=== PATIENT | male | born 1945 | race Caucasian/White ===

== ENCOUNTER → 2018-01-05 11:16 | Outpatient (CLI) | payer MEDICARE, SELFPAY ==
[2018-01-05 14:12] LABS: Blood Urea Nitrogen 28 mg/dL (9-20); Calcium 9.6 mg/dL (8.4-10.2); Carbon Dioxide 27 mmol/L (22-32); Chloride 103 mmol/L (98-107); Estimated Glomerular Filt Rate > 60.0 mL/min (>60); Glucose 95 mg/dL (80-110); HEMOLYSIS 16 (0-50); Potassium 3.8 mmol/L (3.4-5.1); Sodium 143 mmol/L (137-145)
[2018-01-07 14:24] LABS: PSA Free % 24 % (calc) (> 25); PSA, Total 4.5 ng/mL (< 4.1)
== END ==
PROVIDERS: Visit Provider Internal Medicine
DX: D35.2 Benign neoplasm of pituitary gland (principal); R97.20 Elevated prostate specific antigen [PSA]; I10 Essential (primary) hypertension
CPT/HCPCS: 36415; 80048; 84146; 84153; 84154

== ENCOUNTER 2018-01-23 13:44 | Emergency (ER) | payer MEDICARE, SELFPAY ==
[2018-01-23 13:51] VITALS: BP 176/87; PULSE 61; RESP 14; TEMP 36.2; O2SAT 96
--- NOTE | 2018-01-23 13:59 | DI.RAD.S_ITS ---
PROCEDURE: XR CHEST 2V INDICATIONS: chest pain TECHNIQUE: 2 views of the chest were acquired. COMPARISON: [facility], CHEST 2 VIEW, 09/25/2010, 12:31. [facility], CHEST 1 VIEW, 06/12/2016, 16:37. FINDINGS: Surgical changes and devices: None. Lungs and pleura: No pleural effusions or pneumothorax. Lungs are clear. Mediastinum: Mediastinal contours are normal. Heart size is normal. Bones and chest wall: No suspicious bony abnormalities. Soft tissues appear unremarkable. IMPRESSION: No acute cardiopulmonary disease. Dictated by: Steven Alfredo M.D. on 01/23/2018 at 14:26 Approved by: Steven Alfredo M.D. on 01/23/2018 at 14:27
[2018-01-23 14:20] LABS: Add Manual Diff / Slide Review NO; Basophils Percent Auto 0.6 % (0-2); Eosinophils Percent Auto 0.6 % (2-4); Hemoglobin 14.1 g/dL (13.5-17.5); Lymphocytes Percent Auto 16.6 % (25-40); Mean Corpuscular HGB Conc 34.5 % (30-36); Mean Corpuscular Hemoglobin 30.2 PG (26-34); Mean Corpuscular Volume 87.4 fL (80-100); Monocytes Percent Auto 9.6 % (3-14); Neutrophils Absolute Auto 8900 /uL (3000-5900); Neutrophils Percent Auto 72.6 % (50-75); Platelet Count 198 X10^3/uL (150-400); Red Blood Cell Count 4.69 X10^6/uL (4.5-5.9); Red Cell Distribution Width 12.9 % (11.6-14.8); White Blood Cell Count 12.2 X10^3/uL (4.5-11.0)
[2018-01-23 14:21] VITALS: BP 176/87; PULSE 61; RESP 14; TEMP 36.2; O2SAT 96; BMI 33.4
[2018-01-23 14:27] LABS: INR 1.1 (0.9-1.3); Prothrombin Time 11.7 SECONDS (10.1-12.7)
[2018-01-23 14:29] LABS: PTT Partial Thromboplastin Tim 29 SECONDS (26.4-36.2)
[2018-01-23 14:33] LABS: Alanine Aminotransferase 24 IU/L (21-72); Albumin 4.4 g/dL (3.5-5.0); Albumin Globulin Ratio 1.5 (1.0-2.8); Alkaline Phosphatase 90 U/L (38-126); Aspartate Aminotransferase 19 IU/L (17-59); Bilirubin Total 1.1 mg/dL (0.2-1.3); Blood Urea Nitrogen 25 mg/dL (9-20); Calcium 9.8 mg/dL (8.4-10.2); Carbon Dioxide 28 mmol/L (22-32); Chloride 102 mmol/L (98-107); Creatine Kinase 43 U/L (55-170); Estimated Glomerular Filt Rate > 60.0 mL/min (>60); Globulin 2.9 g/dL (1.7-4.1); Glucose 103 mg/dL (80-110); HEMOLYSIS < 15 (0-50); Lipase 35 U/L (23-300); Potassium 4.1 mmol/L (3.4-5.1); Sodium 141 mmol/L (137-145); Total Protein 7.3 g/dL (6.3-8.2)
[2018-01-23 14:41] LABS: D Dimer 431 ng/mL (<230)
[2018-01-23 14:43] LABS: B Type Natriuretic Peptide 36.4 (<100)
[2018-01-23 14:45] LABS: Troponin I < 0.012 ng/mL (0.01-0.034)
--- NOTE | 2018-01-23 15:27 | DI.CT.S_ITS ---
PROCEDURE: CT ANGIO CHEST PE PROTOCOL INDICATIONS: chest pain w/ elevated d-dimer TECHNIQUE: After the administration of intravenous contrast, 2 mm thick sections acquired from the pulmonary apices to the posterior costophrenic angles. 3-dimensional maximum intensity projection (MIP) coronal and sagittal reformats were then acquired through the thorax. For radiation dose reduction, the following was used: automated exposure control, adjustment of mA and/or kV according to patient size. COMPARISON: [facility], CR, XR CHEST 2V, 01/23/2018, 13:47. [facility], CT, PE STUDY (CTA CHEST), 06/12/2016, 16:39. FINDINGS: Image quality: Excellent. Pulmonary arteries: Pulmonary arteries are normal in size, and demonstrate no intraluminal filling defects to suggest central pulmonary embolism. Lungs and pleura: There is dependent atelectasis at the left lung base. Lungs are otherwise clear. No pleural effusions or pneumothorax. Central and peripheral airways are patent. Mediastinum: Heart size is normal, without pericardial effusion. No mediastinal or hilar adenopathy. Thoracic aorta is normal in caliber and enhancement. Esophagus is normal in caliber, without hiatal hernia. Bones and chest wall: No suspicious bony lesions. Ribs and thoracic spine appear intact throughout. Thyroid gland is normal. No axillary or supraclavicular adenopathy. Abdomen: There is a 1.1 cm cyst in the hepatic dome. Visualized upper abdominal solid organs appear normal in the early arterial phase of enhancement. IMPRESSION: 1. No central pulmonary embolism. 2. Dependent atelectasis at left lung base. 3. Small hepatic cyst. Dictated by: Steven Alfredo M.D. on 01/23/2018 at 15:51 Approved by: Steven Alfredo M.D. on 01/23/2018 at 15:56
[2018-01-23 15:30] VITALS: BP 158/87; PULSE 61; RESP 20; O2SAT 98
[2018-01-23 15:54] VITALS: BP 152/79; PULSE 60
[2018-01-23] MEDS: NITROGLYCERIN 0.4 MG SL TAB SL (15:54)
[2018-01-23 16:15] VITALS: BP 144/70; PULSE 64
[2018-01-23 16:57] LABS: Troponin I < 0.012 ng/mL (0.01-0.034)
[2018-01-23 17:00] VITALS: BP 146/84; PULSE 83; RESP 12; O2SAT 96
--- NOTE | 2018-01-23 17:21 | ED_ITS ---
HPI - Chest Pain General Chief Complaint: Chest Pain Stated Complaint: PAIN IN CHEST/DIFFICULTY BREATHING History of Present Illness HPI narrative: HPI 72-year-old obese male with HTN, A. fib (now S/P ablation with subsequent sinus rhythm) presents for evaluation of mild squeezing substernal nonradiating chest discomfort with an associated tightness of his jaw that is been present for 1 to 2 hours. Patient denies recent immobilization, leg trauma, estrogen use, surgery in the last four weeks, hemoptysis, or malignancy in the last 6 months. M/S/F/SocHx notable for: please see HPI; remainder reviewed with patient and in chart. ROS: Negative constitutional, eye, cardiovascular, pulmonary, GI, , MSK, skin , neurologic, psychiatric, endocrine unless noted in the HPI. Exam Gen: Pleasant, non-toxic appearing, resting comfortably. HEENT: NC, AT, PEERL, EOMI. Resp: Clear to auscultation bilaterally, normal work of breathing. Card: RRR with no M/R/G, no crackles in lung bases, no pedal edema, no JVD appreciated. GI: NT/ND Vascular: Both ankles, calves, and thighs of equal size, no calf tenderness to palpation bilaterally. MSK: No chest wall TTP. No visible deformities, strength and tone WNL. Skin: Normal color with no visible lesions. Neuro: AO x 3, no facial asymmetry, vision and hearing WNL. Psych: Mood and affect appropriate. Labs / Imaging (pertinent): WBC 12.2, Hb 14.1, Na 141, K 4.1. Troponin <0.012, troponin (repeat) <0.012 d-dimer 431 EKG: SR at 57 bpm, no MS segment depressions, no new ST segment changes, new LBBB, or T-wave changes that would suggest acute ischemia. CXR: No acute cardiopulmonary disease process. CTA chest: no central pulmonary embolism. Dependent atelectasis and left lung base. Small hepatic cyst. MDM Previous chart, nursing note, and vitals reviewed. A: 72-year-old obese male with HTN, A. fib (now S/P ablation with subsequent sinus rhythm) presents for evaluation of mild squeezing substernal nonradiating chest discomfort with an associated tightness of his jaw that is been present for 1 to 2 hours. DDx and Evaluation: * ACS - doubt ACS given a non-ischemic EKG and negative serial troponins. * UA - history concerning for unstable angina, HEART score 5 (Hx - 1, EKG - 0, age - 2, risk factors - 2, troponin - 0; 30 day MACE: 12 to 16.6%). * Pericarditis - consider pericarditis unlikely given the lack of MS segment depressions as well as the absence of diffuse ST-segment elevations, lack of reduction of pain when supine, and lack of a friction rub. * Myocarditis - unlikely given the negative troponin and an EKG without characteristic MS-segment or ST-segment changes. * Dissection - dissection is unlikely given symptoms, and lack of mediastinal widening, and unremarkable CTA (albeit protocolized for PE). * PE - no evidence by imaging.. * Mediastinal Air - no evidence by CXR or auscultation. * Pneumothorax - no evidence by CXR or physical exam. * MSK - doubt given lack of reproducibility on exam. * Endocarditis - no identifiable risk factors, patient afebrile, no new murmurs appreciated on exam; doubt. * GI (Esophageal rupture, GERD) - esophageal rupture effectively excluded given the lack of mediastinal widening, non-toxic appearance, and lack of identifiable risk factors. While not definitively excluded, further evaluation of GERD is deferred to an outpatient setting. ED Course: Vital signs remained stable and within clinically acceptable limits. Disposition: after extensive discussion patient did not wish to be admitted for cardiac stress test, patient was informed of elevated risk factors, clinical uncertainty, and that the standard of care is for admission. Patient wishes to follow up on an outpatient basis and is aware of the risks and benefits. Patient was prescribed nitroglycerin, aspirin, instructed to return if he has any further symptoms. Impression: Chest Pain. (please reference below for remainder of encounter information) Related Data Home Medications Medication Instructions Recorded Confirmed atenolol 50 mg PO DAILY 01/23/18 01/23/18 triamcinolone acetonide 1 applic TOPICAL SEE INSTRUCTIONS 01/23/18 01/23/18 Previous Rx's Medication Instructions Recorded aspirin 325 mg PO QDAY #30 tab 11/10/16 losartan 100 mg PO QDAY #90 tab 06/12/17 Allergies Allergy/AdvReac Type Severity Reaction Status Date / Time Sulfa (Sulfonamide Allergy Mild rash, Verified 01/23/18 13:55 Antibiotics) itching [SULFA (SULFONAMIDE ANTIBIOTICS)] PFSH Medical History Elevated PSA (Chronic) Benign neoplasm of pituitary gland (Chronic) Paroxysmal atrial fibrillation (Chronic) Obstructive sleep apnea (Chronic 05/14/11) Hypogonadism in male (Chronic 05/13/11) Essential hypertension (Chronic) Hearing loss (Chronic) Tinnitus (Chronic) Vision disorder (Chronic) Current use of intermediate school teacher anticoagulation (Resolved) Surgical History History of cardiac radiofrequency ablation (Resolved ~2015) History of colonoscopy (Resolved ~2005) History of meniscectomy of left knee (Resolved) History of cataract removal with insertion of prosthetic lens (~2010) History of knee replacement (~03/2015) Status post appendectomy Family History Father No problems noted. Mother No problems noted. Social History Smoking Status: Never smoker Exam Initial Vital Signs Initial Vital Signs: Vital Signs Temperature 97.1 F L 01/23/18 13:51 Pulse Rate 61 01/23/18 13:51 Respiratory Rate 14 01/23/18 13:51 Blood Pressure 176/87 H 01/23/18 13:51 Pulse Oximetry 96 01/23/18 13:51 Course Orders Ordered: ED Orders 01/23/18 13:59 XR chest 2V Stat EKG-12 Lead Stat 01/23/18 14:10 BNP [B Type Natriuretic Peptide] Stat Complete Blood Count AUTO DIFF Stat Comprehensive Metabolic Panel Stat D Dimer Stat Lipase Stat Partial Thromboplastin Time Stat Prothrombin Time INR Stat Troponin & CK Cardiac Panel Stat 01/23/18 15:27 CT angio chest PE protocol Stat 01/23/18 16:20 Troponin I Stat Nitroglycerin (Nitrostat) 0.4 mg SL [id number] PRN PRN Reason: Chest Pain Last Admin: 01/23/18 15:54 Dose: 0.4 mg Vital Signs - 8 hr 01/23/18 13:51 01/23/18 14:21 01/23/18 15:30 Temperature 97.1 F L 97.1 F L Pulse Rate 61 61 61 Respiratory Rate 14 14 20 Blood Pressure 176/87 H 176/87 H Blood Pressure [Right Arm] 158/87 H Pulse Oximetry 96 96 98 01/23/18 15:54 01/23/18 16:15 01/23/18 17:00 Temperature Pulse Rate 60 64 83 Respiratory Rate 12 Blood Pressure 152/79 H 144/70 H Blood Pressure [Right Arm] 146/84 H Pulse Oximetry 96 MDM - Chest Pain Lab Data Result diagrams: 01/23/18 14:10 01/23/18 14:10 Lab Results 01/23/18 01/23/18 01/23/18 Range/Units 14:10 14:10 14:10 WBC 12.2 H (4.5-11.0) X10^3/uL RBC 4.69 (4.5-5.9) X10^6/uL Hgb 14.1 (13.5-17.5) g/dL Hct 41.0 (41-53) % MCV 87.4 (80-100) fL MCH 30.2 (26-34) PG MCHC 34.5 (30-36) % RDW 12.9 (11.6-14.8) % Plt Count 198 (150-400) X10^3/uL Neut % (Auto) 72.6 (50-75) % Lymph % (Auto) 16.6 L (25-40) % [place] % (Auto) 9.6 (3-14) % Eos % (Auto) 0.6 L (2-4) % Baso % (Auto) 0.6 (0-2) % Neut # (Auto) 8900 H (9893-5613) /uL PT 11.7 (10.1-12.7) SECONDS INR 1.1 (0.9-1.3) APTT 29 (26.4-36.2) SECONDS D-Dimer (<230) ng/mL Sodium 141 (137-145) mmol/L Potassium 4.1 (3.4-5.1) mmol/L Chloride 102 (98-107) mmol/L Carbon Dioxide 28 (22-32) mmol/L BUN 25 H (9-20) mg/dL Creatinine 1.00 (0.66-1.25) mg/dL Estimated GFR > 60.0 (>60) mL/min BUN/Creatinine Ratio 25.0 H (6-22) Glucose 103 (80-110) mg/dL Calcium 9.8 (8.4-10.2) mg/dL Total Bilirubin 1.1 (0.2-1.3) mg/dL AST 19 (17-59) IU/L ALT 24 (21-72) IU/L Alkaline Phosphatase 90 (38-126) U/L Total Creatine Kinase 43 L (55-170) U/L Troponin I < 0.012 (0.01-0.034) ng/mL B-Natriuretic Peptide 36.4 (<100) Total Protein 7.3 (6.3-8.2) g/dL Albumin 4.4 (3.5-5.0) g/dL Globulin 2.9 (1.7-4.1) g/dL Albumin/Globulin Ratio 1.5 (1.0-2.8) Lipase 35 (23-300) U/L 01/23/18 01/23/18 Range/Units 14:10 16:20 WBC (4.5-11.0) X10^3/uL RBC (4.5-5.9) X10^6/uL Hgb (13.5-17.5) g/dL Hct (41-53) % MCV (80-100) fL MCH (26-34) PG MCHC (30-36) % RDW (11.6-14.8) % Plt Count (150-400) X10^3/uL Neut % (Auto) (50-75) % Lymph % (Auto) (25-40) % [place] % (Auto) (3-14) % Eos % (Auto) (2-4) % Baso % (Auto) (0-2) % Neut # (Auto) (2087-7854) /uL PT (10.1-12.7) SECONDS INR (0.9-1.3) APTT (26.4-36.2) SECONDS D-Dimer 431 H (<230) ng/mL Sodium (137-145) mmol/L Potassium (3.4-5.1) mmol/L Chloride (98-107) mmol/L Carbon Dioxide (22-32) mmol/L BUN (9-20) mg/dL Creatinine (0.66-1.25) mg/dL Estimated GFR (>60) mL/min BUN/Creatinine Ratio (6-22) Glucose (80-110) mg/dL Calcium (8.4-10.2) mg/dL Total Bilirubin (0.2-1.3) mg/dL AST (17-59) IU/L ALT (21-72) IU/L Alkaline Phosphatase (38-126) U/L Total Creatine Kinase (55-170) U/L Troponin I < 0.012 (0.01-0.034) ng/mL B-Natriuretic Peptide (<100) Total Protein (6.3-8.2) g/dL Albumin (3.5-5.0) g/dL Globulin (1.7-4.1) g/dL Albumin/Globulin Ratio (1.0-2.8) Lipase (23-300) U/L Discharge Plan Departure Prescriptions: No Action aspirin 325 MG tablet 325 mg PO QDAY Qty: 30 RF: 0 losartan 100 MG tablet 100 mg PO QDAY Qty: 90 RF: 3 atenolol 50 mg Tablet 50 mg PO DAILY RF: 0 triamcinolone acetonide 0.1 % cream 1 applic Topical SEE INSTRUCTIONS RF: 0
== END 2018-01-23 17:51 | disposition home or self-care (01) ==
PROVIDERS: Emergency Provider Emergency Medicine; PCP Family Medicine
DX: R07.9 Chest pain, unspecified (principal)
CPT/HCPCS: 36591; 71046; 71275; 80053; 82550; 82553; 83690; 83880; 84484; 85025; 85379; 85610; 85730; 93005; 93010; 99282; 99285; Q9967

== ENCOUNTER → 2018-10-20 08:26 | Outpatient (CLI) | payer MEDICARE, SELFPAY ==
[2018-10-20 09:20] LABS: Alanine Aminotransferase 16 IU/L (21-72); Albumin 4.2 g/dL (3.5-5.0); Albumin Globulin Ratio 1.4 (1.0-2.8); Alkaline Phosphatase 83 U/L (38-126); Aspartate Aminotransferase 24 IU/L (17-59); Bilirubin Total 0.4 mg/dL (0.2-1.3); Blood Urea Nitrogen 23 mg/dL (9-20); Calcium 9.6 mg/dL (8.4-10.2); Carbon Dioxide 28 mmol/L (22-32); Chloride 104 mmol/L (98-107); Cholesterol 146 mg/dL (140-199); Estimated Glomerular Filt Rate > 60.0 mL/min (>60); Globulin 2.9 g/dL (1.7-4.1); Glucose 104 mg/dL (80-110); HDL Cholesterol 43 mg/dL (40-60); HEMOLYSIS < 15 (0-50); LDL Cholesterol Calculated 86 mg/dL (<100); Potassium 4.1 mmol/L (3.4-5.1); Sodium 141 mmol/L (137-145); Total Protein 7.1 g/dL (6.3-8.2); Triglycerides 87 mg/dL (35-150)
[2018-10-20 09:36] LABS: Free T4, Direct Thyroxine 1.25 ng/dL (0.78-2.19)
[2018-10-20 09:49] LABS: Prostate Specific Antigen 3.59 ng/mL (0.10-4.00)
[2018-10-20 09:50] LABS: Thyroid Stimulating Hormone 1.29 uIU/mL (0.47-4.68)
[2018-10-23 22:05] LABS: Testosterone Free 51.7 pg/mL (30.0-135.0); Testosterone Total 389 ng/dL (250-1100)
== END ==
PROVIDERS: PCP Internal Medicine; Visit Provider Internal Medicine
DX: D35.2 Benign neoplasm of pituitary gland (principal); E29.1 Testicular hypofunction; I10 Essential (primary) hypertension; R97.20 Elevated prostate specific antigen [PSA]
CPT/HCPCS: 36415; 80053; 80061; 84153; 84402; 84403; 84439; 84443

== ENCOUNTER → 2019-03-03 15:23 | Outpatient (CLI) | payer MEDICARE, SELFPAY ==
[2019-03-03 16:24] LABS: BUN Creatinine Ratio 20.9 (6-22); Blood Urea Nitrogen 23 mg/dL (9-20); Calcium 9.5 mg/dL (8.4-10.2); Carbon Dioxide 25 mmol/L (22-32); Chloride 108 mmol/L (98-107); Estimated Glomerular Filt Rate > 60.0 mL/min (>60); Glucose 94 mg/dL (80-110); HEMOLYSIS 17 (0-50); Potassium 4.2 mmol/L (3.4-5.1); Sodium 142 mmol/L (137-145)
[2019-03-03 16:40] LABS: Prolactin 33.1 ng/mL (3.7-17.9)
== END ==
PROVIDERS: PCP Internal Medicine; Visit Provider Internal Medicine
DX: D35.2 Benign neoplasm of pituitary gland (principal); E29.1 Testicular hypofunction; I10 Essential (primary) hypertension; I48.0 Paroxysmal atrial fibrillation; R97.20 Elevated prostate specific antigen [PSA]
CPT/HCPCS: 36415; 80048; 84146

== ENCOUNTER → 2019-12-21 07:31 | Outpatient (CLI) | payer MEDICARE, SELFPAY ==
[2019-12-21 09:53] LABS: Add Manual Diff / Slide Review NO; Basophils Absolute Auto 0 /uL (0-100); Basophils Percent Auto 0.6 % (0-2); Eosinophils Absolute Auto 100 /uL (0-450); Eosinophils Percent Auto 1.3 % (2-4); Hematocrit 42.2 % (41-53); Hemoglobin 14.8 g/dL (13.5-17.5); Lymphocytes Absolute Auto 1600 /uL (1100-4500); Lymphocytes Percent Auto 24.8 % (25-40); Mean Corpuscular Volume 88.8 fL (80-100); Monocytes Absolute Auto 600 /uL (0-900); Monocytes Percent Auto 9.1 % (3-14); Neutrophils Absolute Auto 4000 /uL (1500-7000); Neutrophils Percent Auto 64.2 % (50-75); Platelet Count 183 X10^3/uL (150-400); Red Blood Cell Count 4.76 X10^6/uL (4.5-5.9); Red Cell Distribution Width 13.2 % (11.6-14.8); White Blood Cell Count 6.3 X10^3/uL (4.5-11.0)
[2019-12-21 10:08] LABS: BUN Creatinine Ratio 26.4 (6-22); Blood Urea Nitrogen 24 mg/dL (9-20); Calcium 9.5 mg/dL (8.4-10.2); Carbon Dioxide 28 mmol/L (22-32); Chloride 105 mmol/L (98-107); Cholesterol 144 mg/dL (140-199); Estimated Glomerular Filt Rate > 60.0 mL/min (>60); Glucose 105 mg/dL (80-110); HDL Cholesterol 39 mg/dL (40-60); HEMOLYSIS < 15 (0-50); LDL Cholesterol Calculated 86 mg/dL (<100); Potassium 4.9 mmol/L (3.4-5.1); Sodium 138 mmol/L (137-145); Triglycerides 96 mg/dL (35-150)
[2019-12-21 10:37] LABS: Prostate Specific Antigen Scrn 2.92 ng/mL (0.1-4.0)
[2019-12-21 10:40] LABS: Testosterone 271 ng/dL (71.8-623)
[2019-12-21 11:05] LABS: Thyroid Stimulating Hormone 0.736 uIU/mL (0.47-4.68)
== END ==
PROVIDERS: PCP Internal Medicine; Referring Provider Internal Medicine; Visit Provider Internal Medicine
DX: E29.1 Testicular hypofunction (principal); D35.2 Benign neoplasm of pituitary gland; G47.33 Obstructive sleep apnea (adult) (pediatric); I48.0 Paroxysmal atrial fibrillation; R97.20 Elevated prostate specific antigen [PSA]; H93.19 Tinnitus, unspecified ear; Z12.5 Encounter for screening for malignant neoplasm of prostate; I10 Essential (primary) hypertension
CPT/HCPCS: 36415; 80048; 80061; 84403; 84443; 85025; G0103